=== PATIENT | female | born 1990 | race African-American/Black ===

== ENCOUNTER 2020-07-30 01:17 | Emergency (ER) | payer OTHER, SELFPAY ==
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
[2020-07-30 01:13] VITALS: BP 157/99; PULSE 106; RESP 18; TEMP 36.6; O2SAT 98
[2020-07-30] MEDS: KETOROLAC (*BKC) 60 MG/2 ML VIAL IM (02:05)
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
[2020-07-30 03:01] LABS: Add Urine Microscopic? YES; Appearance Urine Clear (Clear); Bilirubin Urine Negative (Negative); Blood Urine 2+ (Negative); Color Urine Straw (Yellow); Glucose Urine UA Negative (Negative); Ketones Urine Negative (Negative); Leukocyte Esterase Ur Negative LEU/UL (Negative); Mucus Urine Rare /lpf; Nitrate Urine Negative (Negative); Protein Urine 1+ mg/dL (Negative); Specific Grav Ur 1.018 (1.001-1.035); Squamous Epithelial Cell Urine Rare /hpf (Few); Urobilinogen Urine Negative mg/dL (<2.0); WBC Urine 0-3 /hpf
[2020-07-30 03:26] VITALS: BP 159/100; PULSE 101; RESP 18; TEMP 36.7; O2SAT 100
== END 2020-07-30 03:27 | disposition home or self-care (01) ==
PROVIDERS: Emergency Provider Emergency Medicine
DX: S39.012A Strain of muscle, fascia and tendon of lower back, initial encounter (principal); S80.01XA Contusion of right knee, initial encounter; V48.5XXA Car driver injured in noncollision transport accident in traffic accident, initial encounter
CPT/HCPCS: 72100; 73562; 81001; 96372; 99284; J1885